=== PATIENT | male | born 1985 | race Caucasian/White ===

== ENCOUNTER 2016-11-15 21:07 | Emergency (ER) | payer OTHER ==
[~2016-11-15 21:07] MED LIST: ACETAMINOPHEN-1 EAC1; ATARAX,VISTARIL25 MG PO; ATIVAN1 MG PO; CARAFATE100 MG/ML PO; FLEXERIL5 MG PO; NAPROSYN500 MG PO; NAPROXEN500 MG PO; NOHOMEMEDS; NORCO 5/3251 TABLET PO; PROMETHAZINE HC25 M1; RANITIDINE HCL150 MG PO; WELLBUTRIN75 MG PO; ZOFRAN ODT4 MG PO; ZOFRAN4 MG PO; [UNRECOGNIZED DRUG - OTHER] PO
== END 2016-11-15 22:15 | disposition left against medical advice (07) ==
LOC: EME 21:07
DX: R42 Dizziness and giddiness (principal); R06.02 Shortness of breath; Z53.21 Procedure and treatment not carried out due to patient leaving prior to being seen by health care provider

== ENCOUNTER 2016-12-02 02:11 | Emergency (ER) | payer OTHER ==
[~2016-12-02] VITALS: Ht 188 cm; Wt 184.4 kg
[2016-12-02 03:34] LABS: BASOPHIL COUNT 0.1 K/uL (0-0.1); EOSINOPHIL (%) 4.8 % (0-5); EOSINOPHIL COUNT 0.4 K/uL (0-0.3); HEMATOCRIT 39.8 % (38.0-50.0); IMMATURE GRANULOCYTE (%) 0.2 % (0.0-0.7); IMMATURE GRANULOCYTE COUNT 0.2 K/uL; LYMPHOCYTE COUNT 2.9 K/uL (1.0-2.8); MCH 30.3 PG (29.0-34.0); MCHC 34.7 G/DL (30.0-36.0); MCV 87.5 FL (86-99); MEAN PLAT.VOLUME 9.9 uM^3 (9.0-12.4); MONOCYTE (%) 9.3 % (3-12); MONOCYTE COUNT 0.8 K/uL (0-0.8); NEUTROPHIL (%) 52.5 % (45-76); NEUTROPHIL COUNT 4.7 K/uL (1.8-6.4); PLATELET COUNT 320 K/uL (156-360); RBC DIS.WIDTH-CV 12.9 % (11.8-14.6); RBC DIS.WIDTH-SD 40.3 % (39-53); RED BLOOD COUNT 4.55 M/uL (4.00-5.50)
[2016-12-02 03:42] LABS: CHLORIDE 107 mEq/L (99-109); POTASSIUM 3.9 mEq/L (3.7-5.4); SODIUM 140 mEq/L (136-147)
[2016-12-02 03:44] LABS: GLUCOSE 85 mg/dL (70-99)
[2016-12-02 03:45] LABS: ANION GAP 11 MEQ/L (2-14)
[2016-12-02 03:48] LABS: GFR ESTIMATE (CALCULATED) > 59 mL/min/
[2016-12-02 03:49] LABS: UREA NITROGEN (BUN) 20 mg/dL (9-23)
[2016-12-02] MEDS ORDERED: ROBITUSSIN100 MG/5 M PO (04:26)
[2016-12-02 04:30] VITALS: BP 116/64
== END 2016-12-02 04:30 | disposition home or self-care (01) ==
LOC: EME 02:11
PROVIDERS: Emergency Medicine
DX: J20.9 Acute bronchitis, unspecified (principal); F17.200 Nicotine dependence, unspecified, uncomplicated; Z87.891 Personal history of nicotine dependence
CPT/HCPCS: 71020; 80048; 85025; 93005; 99281; 99284

== ENCOUNTER 2017-01-16 17:35 | Emergency (ER) | payer OTHER ==
[~2017-01-16] VITALS: Ht 190.5 cm; Wt 182.3 kg
[~2017-01-16 17:35] MED LIST changes: +ROBITUSSIN100 MG/5 M PO
[2017-01-16 18:06] LABS: HEMATOCRIT 42.5 % (38.0-50.0); MCH 29.6 PG (29.0-34.0); MCHC 33.4 G/DL (30.0-36.0); MCV 88.7 FL (86-99); MEAN PLAT.VOLUME 9.4 uM^3 (9.0-12.4); PLATELET COUNT 396 K/uL (156-360); RBC DIS.WIDTH-CV 12.5 % (11.8-14.6); RBC DIS.WIDTH-SD 41.1 % (39-53); RED BLOOD COUNT 4.79 M/uL (4.00-5.50); WHITE BLOOD COUNT 10.3 K/uL (4.1-10.2)
[2017-01-16 18:18] LABS: CHLORIDE 108 mEq/L (99-109); SODIUM 140 mEq/L (136-147)
[2017-01-16 18:20] LABS: GLUCOSE 87 mg/dL (70-99)
[2017-01-16 18:21] LABS: ANION GAP 10 MEQ/L (2-14)
[2017-01-16 18:24] LABS: GFR ESTIMATE (CALCULATED) > 59 mL/min/; UREA NITROGEN (BUN) 16 mg/dL (9-23)
[2017-01-16 18:28] LABS: TROP-I INTERPRETATION NEGATIVE; TROPONIN-I < 0.01 ng/mL (0.0-0.30)
[2017-01-16 19:41] VITALS: BP 153/101
== END 2017-01-16 19:43 | disposition home or self-care (01) ==
LOC: EME 17:35
DX: R07.9 Chest pain, unspecified (principal); R06.02 Shortness of breath; R20.2 Paresthesia of skin; F17.200 Nicotine dependence, unspecified, uncomplicated
CPT/HCPCS: 71020; 80048; 84484; 85027; 93005; 99281; 99283

== ENCOUNTER 2017-05-15 06:32 | Emergency (ER) | payer OTHER ==
[~2017-05-15] VITALS: Ht 190.5 cm; Wt 181.0 kg
[2017-05-15] MEDS ORDERED: LORAZEPAM1 MG PO (06:51)
[2017-05-15] MEDS ORDERED: ADVIL200 MG PO (06:55)
[2017-05-15 07:49] LABS: BILIRUBIN NEGATIVE; BLOOD NEGATIVE; COLOR YELLOW ((YELLOW)); GLUCOSE (STRIP) NEGATIVE; KETONES NEGATIVE; LEUKOCYTES NEGATIVE; NITRITE NEGATIVE; PROTEIN (STRIP) NEGATIVE; SPECIFIC GRAVITY 1.026 (1.000-1.030); UROBILINOGEN 0.2 MG/DL (0.2-1.0)
[2017-05-15 07:50] LABS: ADD MIUA? NO; UCUL ADDED? NO
[2017-05-15 08:11] LABS: HEMATOCRIT 39.9 % (38.0-50.0); MCH 30.3 PG (29.0-34.0); MCHC 33.8 G/DL (30.0-36.0); MCV 89.7 FL (86-99); MEAN PLAT.VOLUME 10.2 uM^3 (9.0-12.4); PLATELET COUNT 317 K/uL (156-360); RBC DIS.WIDTH-CV 12.3 % (11.8-14.6); RBC DIS.WIDTH-SD 40.7 % (39-53); RED BLOOD COUNT 4.45 M/uL (4.00-5.50); WHITE BLOOD COUNT 6.9 K/uL (4.1-10.2)
[2017-05-15] MEDS ORDERED: NAPROSYN500 MG PO (08:45)
[2017-05-15 08:54] LABS: ALKALINE PHOSPHATASE 52 IU/L (3-129); ANION GAP 8 MEQ/L (2-14); CHLORIDE 109 MEQ/L (99-109); GFR ESTIMATE (CALCULATED) > 59 mL/min/; GLUCOSE 98 mg/dL (70-99); SAMPLE HEMOLYSIS CHECK 0; SAMPLE ICTERIC CHECK 0; SAMPLE LIPEMIA CHECK 0; SODIUM 142 MEQ/L (136-147); TOTAL BILIRUBIN 0.6 MG/DL (0.0-1.0); UREA NITROGEN (BUN) 18 mg/dL (9-23)
[2017-05-15 09:11] VITALS: BP 118/69
== END 2017-05-15 09:12 | disposition home or self-care (01) ==
LOC: EME 06:32
PROVIDERS: Nurse Practitioner Family
DX: R42 Dizziness and giddiness (principal); F17.200 Nicotine dependence, unspecified, uncomplicated; Z71.6 Tobacco abuse counseling; M94.0 Chondrocostal junction syndrome [Tietze]; Z56.6 Other physical and mental strain related to work; G47.30 Sleep apnea, unspecified
CPT/HCPCS: 80053; 81003; 85027; 93005; 99281; 99284

== ENCOUNTER 2017-06-18 00:05 | Emergency (ER) | payer OTHER ==
[~2017-06-18] VITALS: Ht 190.5 cm; Wt 177.1 kg
[~2017-06-18 00:05] MED LIST changes: +ADVIL200 MG PO; +LORAZEPAM1 MG PO
[2017-06-18 01:51] LABS: BASOPHIL COUNT 0.1 K/uL (0-0.1); EOSINOPHIL (%) 5.5 % (0-5); EOSINOPHIL COUNT 0.4 K/uL (0-0.3); HEMATOCRIT 39.5 % (38.0-50.0); IMMATURE GRANULOCYTE (%) 0.3 % (0.0-0.7); INSTRUMENT ABS NEUTROPHIL CT 4.1 K/uL; LYMPHOCYTE COUNT 2.4 K/uL (1.0-2.8); MCHC 34.2 G/DL (30.0-36.0); MCV 87.8 FL (86-99); MEAN PLAT.VOLUME 9.8 uM^3 (9.0-12.4); MONOCYTE COUNT 0.7 K/uL (0-0.8); NEUTROPHIL (%) 53.2 % (45-76); NEUTROPHIL COUNT 4.1 K/uL (1.8-6.4); PLATELET COUNT 336 K/uL (156-360); RBC DIS.WIDTH-CV 12.4 % (11.8-14.6); WHITE BLOOD COUNT 7.8 K/uL (4.1-10.2)
[2017-06-18 02:10] LABS: CHLORIDE 109 mEq/L (99-109); SODIUM 142 mEq/L (136-147)
[2017-06-18 02:12] LABS: GLUCOSE 86 mg/dL (70-99)
[2017-06-18 02:13] LABS: ANION GAP 10 MEQ/L (2-14)
[2017-06-18 02:15] LABS: GFR ESTIMATE (CALCULATED) > 59 mL/min/
[2017-06-18 02:16] LABS: TROP-I INTERPRETATION NEGATIVE; TROPONIN-I < 0.01 ng/mL (0.0-0.30); UREA NITROGEN (BUN) 18 mg/dL (9-23)
[2017-06-18 04:40] LABS: TROP-I INTERPRETATION NEGATIVE; TROPONIN-I < 0.01 ng/mL (0.0-0.30)
[2017-06-18 05:49] VITALS: BP 128/75
== END 2017-06-18 05:51 | disposition home or self-care (01) ==
LOC: EME 00:05
PROVIDERS: Emergency Medicine
DX: R07.89 Other chest pain (principal); G47.33 Obstructive sleep apnea (adult) (pediatric); Z99.89 Dependence on other enabling machines and devices
CPT/HCPCS: 71020; 80048; 83880; 84484; 85025; 93005; 99281; 99285

== ENCOUNTER 2018-02-16 10:16 | Emergency (ER) | payer OTHER ==
[~2018-02-16] VITALS: Ht 188 cm; Wt 188.3 kg
[2018-02-16 11:23] LABS: HEMATOCRIT 41.8 % (38.0-50.0); HEMOGLOBIN 14.6 G/DL (12.5-16.6); MCH 30.6 PG (29.0-34.0); MCHC 34.9 G/DL (30.0-36.0); MCV 87.6 FL (86-99); PLATELET COUNT 420 K/uL (156-360); RBC DIS.WIDTH-CV 12.5 % (11.8-14.6); RBC DIS.WIDTH-SD 40.2 % (39-53); RED BLOOD COUNT 4.77 M/uL (4.00-5.50); WHITE BLOOD COUNT 9.1 K/uL (4.1-10.2)
[2018-02-16 11:39] LABS: CHLORIDE 109 mEq/L (99-109); POTASSIUM 4.1 mEq/L (3.7-5.4); SODIUM 142 mEq/L (136-147)
[2018-02-16 11:41] LABS: GLUCOSE 91 mg/dL (70-99)
[2018-02-16 11:45] LABS: CREATININE 0.8 mg/dL (0.6-1.3); GFR ESTIMATE (CALCULATED) > 59 mL/min/ (58.99-99999); TROP-I INTERPRETATION NEGATIVE; TROPONIN-I < 0.01 ng/mL (0.0-0.30)
[2018-02-16 11:46] LABS: UREA NITROGEN (BUN) 17 mg/dL (9-23)
[2018-02-16 12:14] LABS: ALBUMIN 4.4 g/dL (3.2-4.8)
[2018-02-16 12:15] LABS: MAGNESIUM 2.4 mg/dL (1.3-2.7)
[2018-02-16 12:17] LABS: TOTAL PROTEIN 7.8 g/dL (6.4-8.3)
[2018-02-16 12:19] LABS: TOTAL BILIRUBIN 0.5 mg/dL (0.0-1.0)
[2018-02-16 12:20] LABS: ALKALINE PHOSPHATASE 74 IU/L (3-129)
[2018-02-16 12:22] LABS: AST (GOT) 23 IU/L (2-34); DIRECT BILIRUBIN 0.2 mg/dL (0.0-0.3)
[2018-02-16 12:23] LABS: ALT (GPT) 37 IU/L (3-49)
[2018-02-16 12:24] LABS: LIPASE 24 U/L (1.0-51.0)
[2018-02-16 13:38] VITALS: BP 112/68
== END 2018-02-16 13:47 | disposition home or self-care (01) ==
LOC: EME 10:16
DX: R07.9 Chest pain, unspecified (principal); F17.200 Nicotine dependence, unspecified, uncomplicated; E66.9 Obesity, unspecified; Z68.43 Body mass index [BMI] 50.0-59.9, adult; F41.9 Anxiety disorder, unspecified
CPT/HCPCS: 71046; 80048; 80076; 83690; 83735; 84484; 85027; 93005; 99281; 99285

== ENCOUNTER 2018-02-27 23:51 | Emergency (ER) | payer OTHER ==
[~2018-02-27] VITALS: Ht 188 cm; Wt 191.1 kg
[2018-02-28 00:17] LABS: HEMATOCRIT 37.9 % (38.0-50.0); HEMOGLOBIN 13.3 G/DL (12.5-16.6); MCH 30.8 PG (29.0-34.0); MCHC 35.1 G/DL (30.0-36.0); MCV 87.7 FL (86-99); PLATELET COUNT 330 K/uL (156-360); RBC DIS.WIDTH-CV 12.4 % (11.8-14.6); RBC DIS.WIDTH-SD 39.9 % (39-53); RED BLOOD COUNT 4.32 M/uL (4.00-5.50); WHITE BLOOD COUNT 9.2 K/uL (4.1-10.2)
[2018-02-28 00:28] LABS: CHLORIDE 108 mEq/L (99-109); POTASSIUM 3.6 mEq/L (3.7-5.4); SODIUM 140 mEq/L (136-147)
[2018-02-28 00:30] LABS: GLUCOSE 101 mg/dL (70-99)
[2018-02-28 00:34] LABS: GFR ESTIMATE (CALCULATED) > 59 mL/min/ (58.99-99999)
[2018-02-28 00:35] LABS: UREA NITROGEN (BUN) 19 mg/dL (9-23)
[2018-02-28 00:36] LABS: TROP-I INTERPRETATION NEGATIVE; TROPONIN-I < 0.01 ng/mL (0.0-0.30)
[2018-02-28 03:12] LABS: D-DIMER ELISA < 150.00 ng/mLDDU (<230)
[2018-02-28 03:17] LABS: TOTAL BILIRUBIN 0.5 mg/dL (0.0-1.0)
[2018-02-28 03:18] LABS: ALKALINE PHOSPHATASE 64 IU/L (3-129)
[2018-02-28 03:20] LABS: AST (GOT) 23 IU/L (2-34); DIRECT BILIRUBIN 0.2 mg/dL (0.0-0.3)
[2018-02-28 03:21] LABS: ALT (GPT) 51 IU/L (3-49); LIPASE 64 U/L (1.0-51.0)
[2018-02-28 04:50] LABS: TROP-I INTERPRETATION NEGATIVE; TROPONIN-I < 0.01 ng/mL (0.0-0.30)
[2018-02-28] MEDS ORDERED: PEPCID20 MG PO (05:14)
[2018-02-28 05:54] VITALS: BP 137/60
== END 2018-02-28 05:55 | disposition home or self-care (01) ==
LOC: EME 23:51
PROVIDERS: Emergency Medicine
DX: R07.89 Other chest pain (principal); F17.200 Nicotine dependence, unspecified, uncomplicated
CPT/HCPCS: 71046; 80048; 80076; 83690; 84484; 85027; 85379; 93005; 94640; 99281; 99284